=== PATIENT | female | born 1995 | race Caucasian/White ===

== ENCOUNTER 2017-11-12 02:03 | Emergency (ER) | payer BC, MEDICAID ==
[~2017-11-12] VITALS: Ht 170.2 cm; Wt 97.5 kg
[~2017-11-12 02:03] MED LIST: CYCL5TAB PO; PROM12.55 PO; RIZA10TA PO; TOPI25TA52 PO; TOPI50TA35 PO; [UNRECOGNIZED DRUG - CODE] SQ; skelaxin
[2017-11-12] MEDS ORDERED: ROBITUSSIN DM PO STA (02:24)
[2017-11-12] MEDS ORDERED: DUONEB 0.5 MG-3 MG/3 ML SOLN IH STA (02:24)
[2017-11-12] MEDS ORDERED: ROBITUSSIN DM ONE (02:30)
[2017-11-12] MEDS ORDERED: DUONEB 0.5 MG-3 MG/3 ML SOLN IH ONE (02:33)
--- NOTE | 2017-11-12 02:48 | ER.PDOC ---
General Chief Complaint: Cough/Congestion Stated Complaint: CONGESTION,HEADACHE Time seen by MD: 02:35 Source: patient History of Present Illness Initial Comments Patient presents with uri like sx. patient reports cough for 3-4 days. states non productive but wet. states also wtih signif nasal congestion. patients states no fevers. now feeling more sob. staes also wtih diarrhea x 1 day. had one episode of post tussive emesis. no sick contact no recent travel. Timing/Duration: gradual Severity: moderate Associated Symptoms: cough, mild SOB Allergies: Coded Allergies: morphine (Verified Allergy, Unknown, 11/10/13) Home Meds Reported Medications Topiramate (TOPAMAX) 25 Mg Tablet, 1 TAB PO BID, #60 TAB 2 Refills 12/14/14 Constitutional: denies chills, denies fever EENTM: denies eye pain, denies ear pain, denies ear discharge Respiratory: cough, shortness of breath, denies wheezing Cardiovascular: denies chest pain, denies edema, denies palpitations Gastrointestinal: denies abdominal pain, denies constipated, diarrhea, denies nausea Genitourinary: denies dysuria, denies frequency, denies flank pain Musculoskeletal: denies back pain, denies joint pain, denies joint swelling Psychiatric/Neurological: denies headache, denies numbness Hematologic/Lymphatic: denies easy bleeding, denies easy bruising Past Medical History Medical History: other (chiari malfomration) Surgical History: appendectomy, cholecystectomy LMP (females 10-50): this week Social History Smoking: cigarettes, less than 1 pack/day Alcohol Use: none Drug Use: none Physical Exam General Appearance: alert, no distress Eye: eyes nml inspection, lids & conjunct. nml, PERRL Throat: airway nml Neck: nml inspection, supple Respiratory: no resp.distress (intermittent wheezing , no resp disress, no accessory muslce use, no retractoins), wheezes CVS: reg rate & rhythm, heart sounds nml Skin: color nml, no rash, warm/dry Extremities: non-tender, nml ROM, no pedal edema NEURO/PSYCH: oriented x 3, CN's nml as tested, motor nml, sensation nml, mood/ affect nml Results/Orders Results/Orders Administered Medications Medications (Trade) Dose Ordered Sig/Vonda Route PRN Reason Start Time Stop Time Status Last Admin Dose Admin Albuterol/ Ipratropium (Duoneb 0.5 Mg-3 Mg/3 ml Soln) 3 ml STAT STAT IH 11/12/17 02:24 11/12/17 02:29 DC 11/12/17 02:24 Guaifenesin (Robitussin Dm) 10 ml STAT STAT PO 11/12/17 02:24 11/12/17 02:29 DC 11/12/17 02:32 Progress Progress patient presents wtih uri like sx. pateint wtih no resp distress. afebrile and well appearing. patient with intermittent wheezing. cxr and nebs ordered. pateint cxr clear at this time blv patient liklely with bronchitis/uri. at this time given pateint with no resp distress, stable o2 can be treated as outpatietn. will d/c with dashawn blevins and nuha and f/u wtih her pcp. patient explained results. risks and return precautions discussed. understands and agrees with plan EKG/XRAY/CT/US XRAY Comments: cxr: clear Departure Time of Disposition: 02:54 Disposition: 01 HOME, SELF-CARE Impression: Primary Impression: Upper respiratory tract infection Condition: Stable Patient Instructions: Cough, Adult Referrals: NGUYEN SAMUELS TRIAGE RN (PCP) PRIMARY CARE PROVIDER Duration or Time Spent with Pa: 30 ALFRED GONZALES MD Nov 12, 2017 02:48
--- NOTE | 2017-11-12 02:52 | DIREP ---
PROCEDURE:CHEST 1 VIEW COMPARISON:None. INDICATIONS:sob FINDINGS: LUNGS/PLEURA:No significant pulmonary parenchymal abnormalities. No effusions. VASCULATURE:Normal. Unremarkable pulmonary vasculature. CARDIAC:Normal. No cardiac silhouette abnormality or cardiomegaly. MEDIASTINUM:Normal. No visible mass or adenopathy. BONES:Normal. No fracture or visible bony lesion. OTHER:Negative. CONCLUSION:Normal examination. Dictated by: Imelda Marquez M.D. on 11/12/2017 at 02:50 AM
[2017-11-12 03:05] VITALS: BP 118/64
== END 2017-11-12 03:04 | disposition home or self-care (01) ==
LOC: ER 02:03
DX: J06.9 Acute upper respiratory infection, unspecified (principal); Z88.5 Allergy status to narcotic agent; Z90.49 Acquired absence of other specified parts of digestive tract
CPT/HCPCS: 71045; 94640; 99283; J7620